=== PATIENT | male | born 1985 | race Two or more races ===

== ENCOUNTER 2020-03-21 15:01 | Outpatient (CLI) | payer OTHER | END 2020-03-21 15:06 | disposition home or self-care (01) | LOC: LAB 15:01 | PROVIDERS: ATTEND General Practice | DX: Z20.828 Contact with and (suspected) exposure to other viral communicable diseases (principal); Z11.59 Encounter for screening for other viral diseases ==

== ENCOUNTER 2020-06-18 09:08 | Emergency (ER) | payer BC ==
[~2020-06-18] VITALS: Ht 170.2 cm; Wt 65.8 kg
== END 2020-06-18 16:00 | disposition home or self-care (01) ==
LOC: ER 09:08
DX: B34.9 Viral infection, unspecified (principal); A90 Dengue fever [classical dengue]; B96.0 Mycoplasma pneumoniae [M. pneumoniae] as the cause of diseases classified elsewhere

== ENCOUNTER → 2020-06-22 | Emergency (ER) | payer BC ==
[~2020-06-22] VITALS: Ht 170.2 cm; Wt 65.8 kg
== END | disposition left against medical advice (07) ==
LOC: ER 12:56
DX: D69.49 Other primary thrombocytopenia (principal); A90 Dengue fever [classical dengue]; B34.9 Viral infection, unspecified; E86.0 Dehydration; Z03.818 Encounter for observation for suspected exposure to other biological agents ruled out